=== PATIENT | male | born 1975 | race Two or more races ===

== ENCOUNTER 2017-01-03 11:53 | Emergency (ER) | payer OTHER ==
[~2017-01-03] VITALS: Ht 165.1 cm; Wt 78.0 kg
[2017-01-03 12:04] VITALS: BP 121/66
--- NOTE | 2017-01-03 12:09 | NUR ---
PT BIB SELF C/O LAC TO L 3RD DIGIT FINGERNAIL, OPEN TO AIR AND NOT BLEEDING. PT REPORTS LAST TETANUS WITHIN 5 YEARS. NAD NOTED. IN ER BED 12.
--- NOTE | 2017-01-03 12:41 | NUR ---
Patient discharged to home in stable condition. Written and verbal after care instructions given. Patient verbalizes understanding of instruction. WOUND CARE RENDERED.
== END 2017-01-03 12:42 | disposition home or self-care (01) ==
LOC: ER 11:57
DX: S61.213A Laceration without foreign body of left middle finger without damage to nail, initial encounter (principal); W26.0XXA Contact with knife, initial encounter; Y93.G1 Activity, food preparation and clean up; Y92.89 Other specified places as the place of occurrence of the external cause; Y99.8 Other external cause status
CPT/HCPCS: A4606; A6403; Z7502; Z7610